=== PATIENT | male | born 1980 | race Caucasian/White ===

== ENCOUNTER 2017-05-03 07:58 | Emergency (ER) | payer BC, OTHER ==
[2017-05-03 08:12] VITALS: BP 144/92
[2017-05-03] MEDS ORDERED: Tetan/Diph/Pertus SYR(Tdap)* 0.5 ML SYR(BOOSTRIX) use SYR IM ONE (08:22)
--- NOTE | 2017-05-03 09:09 | RAD ---
INDICATION: Right hand injury. TECHNIQUE: 4 views of the right hand were obtained. FINDINGS: There is soft tissue swelling and a soft tissue defect adjacent to the distal phalanx of the fifth finger. No fracture is seen. Joint spaces appear maintained. IMPRESSION: SOFT TISSUE INJURY IN THE FIFTH FINGER, NO FRACTURE IS SEEN.
--- NOTE | 2017-05-03 15:10 | ED ---
Luz Elena Rosario Edward, scribed for Ted Javier MD on 05/03/17 at 0803 . Upper Extremity Pain - HPI Summary HPI Summary: 37 y/o male presents to the ED c/o sudden onset R pinky pain and laceration at the R pinky s/p crush injury to the R pinky. Pt states he dropped a "chunk of metal" at the tip of his R pinky finger around an hour [employer]. Full ROM @ R pinky. Pt states there was a lot of bleeding. Pt is R handed. No relevant PMHx. Non smoker. Occasional EtOH use. - History of Current Complaint Stated Complaint: RIGHT HAND INJURY Hx Obtained From: Patient Mechanism Of Injury: Blunt Trauma - Chunk of metal fell on R pinky Onset/Duration: Started Hours Ago Pain Location: Finger - R pinky Associated Signs & Symptoms: Positive: Other - Laceration and pain @ R pinky. Full ROM - Allergies/Home Medications Allergies/Adverse Reactions: Allergies Allergy/AdvReac Type Severity Reaction Status Date / Time No Known Drug Allergy Allergy Unknown Verified 05/03/17 08:25 Reaction Details PMH/Surg Hx/FS Hx/Imm Hx Previously Healthy: No GI History: Reports: Hx Gastroesophageal Reflux Disease, Hx Ulcer - Family History Known Family History: Positive: Other - Thyroid disorder, GERD - Social History Occupation: Employed Full-time Lives: With Family Alcohol Use: Occasionally Hx Tobacco Use: No Smoking Status (MU): Never Smoked Tobacco Review of Systems Constitutional: Negative Eyes: Negative ENT: Negative Cardiovascular: Negative Respiratory: Negative Gastrointestinal: Negative Genitourinary: Negative Positive: Arthralgia - R pinky pain Skin: Other - Laceration @ R pinky Neurological: Negative Psychological: Normal All Other Systems Reviewed And Are Negative: Yes Physical Exam - Summary Physical Exam Summary: The patient is well-nourished in no acute distress and in no acute pain. The skin is warm and dry and skin color reflects adequate perfusion. HEENT: The head is normocephalic and atraumatic. The pupils are equal and reactive. The conjunctivae are clear and without drainage. Nares are patent and without drainage. Mouth reveals moist mucous membranes and the throat is without erythema and exudate. The external ears are intact. The ear canals are patent and without drainage. The tympanic membranes are intact. Neck is supple with full range of motion and non-tender. There are no carotid bruits. There is no neck vein distension. Respiratory: Chest is non-tender. Lungs are clear to auscultation and breath sounds are symmetrical and equal. Cardiovascular: Hear is regular rate and rhythm. There is no murmur or rub auscultated. There is no peripheral edema and pulses are symmetrical and equal. Abdomen: The abdomen is soft and non-tender. There are normal bowel sounds heard in all four quadrants and there is no organomegaly palpated. Musculoskeletal: There is no back pain noted. Extremities are non-tender with full range of motion. There is good capillary refill. There is no peripheral edema or calf tenderness elicited. The R pinky has full ROM. Skin: There is a well-approximated laceration at the palmar aspect of the IP joint at his R pinky finger. There is also a laceration at the tip of his R pinky finger. There is no subungual hematoma. Neurological: Patient is alert and oriented to person, place and time. The patient has symmetrical motor strength in all four extremities. Cranial nerves are grossly intact. Deep tendon reflexes are symmetrical and equal in all four extremities. Psychiatric: The patient has an appropriate affect and does not exhibit any anxiety or depression. No HEENT IP join pulmar aspect laceration latceration at the tip. no subinguil hematoma. Full ROM Triage Information Reviewed: Yes Vital Signs On Initial Exam: Initial Vitals Temp Pulse Resp BP Pulse Ox 97.6 F 85 20 156/83 99 05/03/17 08:05 05/03/17 08:05 05/03/17 08:05 05/03/17 08:05 05/03/17 08:05 Vital Signs Reviewed: Yes Procedures - Procedure Summary Procedure Summary: R pinky cleaned with Hibicleanse, soaked in sterile water solution for 15 minutes The pt was hemodynamically stable. The patient tolerated the procedure well. - Laceration/Wound Repair 1 Location: upper extremity - R pinky finger Description: Linear Anesthesia: Digital, 1.0%, Lido Length, Depth and Shape: 1 cm in length x 3 mm wide Betadine Prep?: Yes Laceration/Wound Explored: clean Closure: Single Layer Suture Type: Nylon - 5-0 Number of Sutures: 5 Sterile Dressing Applied?: Yes - Triple antibiotic, gauze and Coban. Diagnostics - Vital Signs Vital Signs Temp Pulse Resp BP Pulse Ox 05/03/17 08:11 98.8 F 87 18 144/92 95 05/03/17 08:05 97.6 F 85 20 156/83 99 - Laboratory Lab Statement: Any lab studies that have been ordered have been reviewed, and results considered in the medical decision making process. - Radiology HAND XRAY Xray Interpretation: Positive (See Comments) - SOFT TISSUE INJURY IN THE FIFTH FINGER, NO FRACTURE IS SEEN. ED PHYSICIAN AGREEABLE Radiology Interpretation Completed By: Radiologist Course/Dx - Course Assessment/Plan: 37 y/o male presents to the ED c/o sudden onset R pinky pain and laceration at the R pinky s/p crush injury to the R pinky. Pt states he dropped a "chunk of metal" at the tip of his R pinky finger around an hour [employer]. Full ROM @ R pinky. Pt states there was a lot of bleeding. Pt is R handed. No relevant PMHx. Non smoker. Occasional EtOH use. 37 y/o male presents to the ED c /o sudden onset R pinky pain s/p crush injury to the R pinky. Pt states he dropped a "chunk of metal" at the tip of his R pinky finger around an hour [employer]. Pt has trouble bending the pinky. Pt states there was a lot of bleeding. Pt is R handed. No relevant PMHx. Non smoker. Occasional EtOH use. R HAND XR SHOWS SOFT TISSUE INJURY IN THE FIFTH FINGER, NO FRACTURE IS SEEN. Laceration repair done in the ED. Pt will be d/c home. - Diagnoses Differential Diagnosis/HQI/PQRI: Positive: Fracture (Open), Hematoma, Laceration Provider Diagnoses: Crush injury R fifth finger, Laceration R fifth finger Discharge - Discharge Plan Condition: Stable Disposition: HOME Prescriptions: Cephalexin CAP* [Keflex CAP*] 500 mg PO QID #20 cap Patient Education Materials: Crush Injury (ED), Laceration (ED), Care For Your Stitches (ED) Referrals: [facility] [Provider Group] - 2 Weeks (PLEASE F/U IN 10-14 DAYS FOR REMOVAL OF STITCHES) Additional Instructions: PLEASE CLEAN YOUR WOUND 2x DAY WITH WATER AND ANTIBIOTIC. USE A BAND-AID DURING THE DAY. AIR DRY AT NIGHT. STITCHES OUT IN 10-14 DAYS WITH YOUR PCP. The documentation as recorded by the talibLuz Elena saleh Edward accurately reflects the service I personally performed and the decisions made by me, Ted Javier MD.
== END 2017-05-03 09:50 | disposition home or self-care (01) ==
LOC: ED 07:58
DX: S61.216A Laceration without foreign body of right little finger without damage to nail, initial encounter (principal); W23.0XXA Caught, crushed, jammed, or pinched between moving objects, initial encounter; Y93.89 Activity, other specified; Y92.9 Unspecified place or not applicable; M79.644 Pain in right finger(s)
CPT/HCPCS: 12001; 90715; 99282